=== PATIENT | female | born 1970 | race Caucasian/White ===

== ENCOUNTER 2019-09-10 06:27 | Day surgery (SDC) | payer BC, SELFPAY ==
[2019-09-05 08:30] VITALS: BMI 22.8
--- NOTE | 2019-09-05 08:44 | HP_ITS ---
Intake Vital Signs 09/05/19 Height 5 ft 8 in 09/05/19 Weight: 150 lb 4 oz 09/05/19 BMI 22.8 09/05/19 BP 138/88 H 09/05/19 Blood Pressure Location Rt brachial 09/05/19 Position Sitting 09/05/19 Respiration 202 H 09/05/19 Pulse 78 09/05/19 Pulse Oximetry (%) 100 Intake Visit Reasons: C-Scope Consult Positive Cologuard Chief Complaint: positive cologuard [employer] Required: No Is patient in pain?: No Allergies No Known Allergies Allergy (Verified 09/05/19 08:30) Medications montelukast 10 mg tablet mg PO 09/05/19 [History Confirmed 09/05/19] Is last menstrual period known: No Post menopausal: Yes Patient : No PFSH Medical History (Updated 09/05/19 @ 08:29 by Ruby Carrasco) Mitral valve prolapse (Acute) Osteoarthritis (Acute) Positive colorectal cancer screening using Cologuard test (Acute) Seasonal allergies (Acute) Sleep apnea (Acute) Surgical History (Updated 09/05/19 @ 08:29 by Ruby Carrasco) History of oral surgery (Acute) Status post breast lumpectomy (Acute ~2009) Family History (Updated 09/05/19 @ 08:29 by Ruby Carrasco) Father Diabetes Heart disease Hypertension Hyperlipidemia Cancer skin Social History (Updated 09/05/19 @ 08:44 by Norma Holden MD) Smoking Status: Never smoker HPI HPI HPI: GEORGINA PAUL, is a 49 F who presents to the office today for HPI HPI Surgical H&P: Yes HPI: GEORGINA PAUL, is a 49 F who presents to the office today for colonoscopy due to positive Cologuard test. Patient has never had a previous colonoscopy denies any family history of colon cancer. Patient states she has bowel movements daily denies any blood. Patient does states she occasionally has some left lower quadrant burning which only lasts a few seconds at a time otherwise denies any chronic abdominal pain nausea, vomiting, reflux. ROS General General: No weight change, fatigue, colon cancer, breast cancer or weakness HEENT HEENT: No difficulty swallowing, eye injury, eye surgery, swollen glands or hoarseness Endo Endocrine: No thyroid disease, diabetes mellitus, thyroid cancer, Hair loss, heat intolerance or cold intolerance Musc Musculoskeletal: Yes arthritis; no back problems, rheumatoid arthritis, gout or joint pain Cardio Cardiovascular: No murmur, pacemaker, heart disease, atrial fibrillation, high blood pressure, heart attack, heart stent, palpitations, shortness of breat with exertion or chest pain Additional Details: MVP Resp Respiratory: No shortness of breath, Yes sleep apnea, No cough, No COPD, No asthma, No emphysema, No wheezing Gastro Gastrointestinal: No abdominal pain, No nausea or vomiting, No diarrhea, No constipation, No blood in stool, No acid reflux, No hemorrhoids, No ulcers, No gallbladder problem, No black,tarry stools Additional Details: + cologard Sergio Hematologic: No blood thinners, No blood disorders, No bleeding, No anemia, No blood clots Neuro Neurologic: No weakness Exam Const General: cooperative, comfortable, no acute distress Resp Effort & Inspection: normal respiratory effort Cardio Rate: regular rate Heart Sounds: no murmurs GI Inspection: non-distended Palpation: soft, no guarding, nontender Assessment & Plan Problems 1. Positive colorectal cancer screening using Cologuard test R19.5 Plan I have discussed the above with the patient. I have offered the patient colonoscopy for evaluation. I have explained the risks/benefits of the procedure and described the procedure. I have discussed the risks with the patient, including but not limited to: infection, bleeding, perforation of the GI tract requiring emergency surgery, inability to complete the procedure, injury to any internal organs, complications of anesthesia, etc. - the patient understands and agrees to proceed. I have answered all the patient's questions to the patient's satisfaction and the patient has no further questions. The patient has been given instructions for the colon cleansing preparation. One day of clears, MiraLAX Dulcolax split prep Norma oHlden M.D. Pager: [phone] [facility] [address] [place] [address], [facility], [address] [place] [address] Office: [phone] Orders Orders: Colonoscopy Today Plan Detail Follow Up We will schedule colonoscopy Coding Level of Care Code Off vis,new,level 3 Diagnoses Positive colorectal cancer screening using Cologuard test R19.5 09/05/19 0844 <Electronically signed by Norma Vázquez am, MD> Date _ Norma Holden MD I have re-examined the patient. There are no clinical changes since date of exam. Norma Holden M.D. Pager: [phone] [facility] [address] [place] [id number] Office: [phone]
[2019-09-10] VITALS (7 sets, daily range): BP systolic 79–124; BP diastolic 61–79; PULSE 73–90; RESP 14–18; TEMP 36.2–37.5; O2SAT 96–100; BMI 23.9
--- NOTE | 2019-09-10 | COLBX_PTH ---
PATIENT: GEORGINA PAUL LOC: EN U#:[id number] AGE/SX: 49/F ROOM: RE09/10/[address]: Dr. Norma Holden MD : 1970 BED: DIS: 09/10/2019 SPEC #: [id number] RECD: 09/10/19 13:23 STATUS: ELLIS REAlicia #: [id number] KING: 09/10/19 00:[address]: Norma Holden DEPT: SURGICAL PATHOLOGY RECD BY: Karl Medrano ENTERED: 09/10/19 13:24 SP TYPE: COLON BX OTHR DR: Dr. Shirley Dewey MD Tissues: A - Ascending colon B - Rectum, NOS Procedures: Surgery Specimen Level IV HEADER OPERATION: Colonoscopy (MAC) PRE-OP DIAGNOSIS: Positive Cologuard TISSUE SUBMITTED: A - Ascending colon polyp biopsy, B - Rectal biopsy MICROSCOPIC DIAGNOSIS A. Ascending colon polyp, biopsy: Fragments of hyperplastic polyp. B. Rectum, biopsy: No pathologic change. AM:richard 09/11/19 MICROSCOPIC DESCRIPTION Slides are reviewed. GROSS DESCRIPTION A - Received in fixative is one container labeled with the patient's name and designated ascending colon polyp. The specimen consists of multiple irregular fragments of light smiley soft tissue that in aggregate measure 0.5 x 0.5 x 0.1 cm. The specimen is totally submitted in one cassette. B - Received in fixative is one container labeled with the patient's name and designated rectal biopsy. The specimen consists of one irregular fragment of light smiley soft tissue that measures 0.3 x 0.3 x 0.1 cm. The specimen is totally submitted in one cassette. / SJ:richard 09/10/19 TC:5 CPT: 74644 x2
[2019-09-10] MEDS: Lactated Ringers 1,000 ML 100 ML IV (07:11)
[2019-09-10 07:41] LABS: Internal QC Validated? YES +Cl - CLEAR BKGD; Pregnancy, Serum, hCG Quali. NEGATIVE Negative
--- NOTE | 2019-09-10 14:18 | OP.COLON_ITS ---
Patient Name: Donna Phipps Procedure Date: 09/10/2019 7:04 AM Date of : 1970 Age: 49 Procedure: Colonoscopy Indications: Positive Cologuard test Providers: Norma Holden MD Referring MD: Shirley Dewey Medicines: Monitored Anesthesia Care Patient Profile: This is a 49 year old female. Last Colonoscopy: none. The patient's first colonoscopy is today. Complications: No immediate complications. Procedure: Pre-Anesthesia Assessment: - Prior to the procedure, a History and Physical was performed, and patient medications and allergies were reviewed. The patient's tolerance of previous anesthesia was also reviewed. The risks and benefits of the procedure and the sedation options and risks were discussed with the patient. All questions were answered, and informed consent was obtained. Prior Anticoagulants: The patient has taken no previous anticoagulant or antiplatelet agents. ASA Grade Assessment: II - A patient with mild systemic disease. After reviewing the risks and benefits, the patient was deemed in satisfactory condition to undergo the procedure. After I obtained informed consent, the scope was passed under direct vision. Throughout the procedure, the patient's blood pressure, pulse, and oxygen saturations were monitored continuously. The Colonoscope was introduced through the anus and advanced to the cecum, identified by the appendiceal orifice, ileocecal valve and palpation. The colonoscopy was technically difficult and complex due to a tortuous colon. Successful completion of the procedure was aided by applying abdominal pressure. The patient tolerated the procedure well. The quality of the bowel preparation was good. Scope In: 7:45:20 AM Scope Withdrawal Time 0 hours 16 minutes 27 seconds Scope Out: 8:14:38 AM Total Procedure Duration Time 0 hours 29 minutes 18 seconds Findings: Hemorrhoids were found on perianal exam. A less than 5 mm polyp was found in the descending colon. The polyp was sessile. The polyp was removed with a cold biopsy forceps. Resection and retrieval were complete. Biopsies were taken with a cold forceps for histology. Internal hemorrhoids were found during digital exam. The hemorrhoids were Grade I (internal hemorrhoids that do not prolapse). A localized area of mildly erythematous mucosa was found in the rectum. This was biopsied with a cold forceps for histology. The exam was otherwise without abnormality. Impression: - Hemorrhoids found on perianal exam. - One less than 5 mm polyp in the descending colon, removed with a cold biopsy forceps. Resected and retrieved. Biopsied. - Internal hemorrhoids. - Erythematous mucosa in the rectum. Biopsied. - The examination was otherwise normal. Recommendation: - Discharge patient to home. - Resume previous diet. - Continue present medications. - Await pathology results. - Repeat colonoscopy in 3 - 5 years for surveillance based on pathology results. Procedure Code(s): --- Professional --- 90686, Colonoscopy, flexible; with biopsy, single or multiple Diagnosis Code(s): --- Professional --- K64.0, First degree hemorrhoids D12.4, Benign neoplasm of descending colon K62.89, Other specified diseases of anus and rectum R19.5, Other fecal abnormalities CPT copyright 2017 [employer]. All rights reserved. The codes documented in this report are preliminary and upon wharfinger chief review may be revised to meet current compliance requirements. MD Norma Gorman MD 09/10/2019 8:21:32 AM This report has been signed electronically. Number of Addenda: 0 Note Initiated On: 09/10/2019 7:04 AM
--- NOTE | 2019-09-10 14:18 | OP.CCLET_ITS ---
09/10/2019 Shirley Dewey [facility] [address] [place] [address] Re : Colonoscopy procedure for Donna Phipps Dear Dr. Dewey This procedure was performed on Tuesday, September 10, 2019. My impressions and recommendations are as follows: Impressions : - Hemorrhoids found on perianal exam. - One less than 5 mm polyp in the descending colon, removed with a cold biopsy forceps. Resected and retrieved. Biopsied. - Internal hemorrhoids. - Erythematous mucosa in the rectum. Biopsied. - The examination was otherwise normal. Recommendations : - Discharge patient to home. - Resume previous diet. - Continue present medications. - Await pathology results. - Repeat colonoscopy in 3 - 5 years for surveillance based on pathology results. My findings are described in the full procedure note, which is enclosed. If I can be of further assistance, please feel free to contact me at Doctor phone number(s): , Work: . Sincerely, MD Norma Gorman MD 09/10/2019 8:21:32 AM This report has been signed electronically.
== END 2019-09-10 09:09 | disposition home or self-care (01) ==
LOC: EN 06:29 → AC 06:31
PROVIDERS: Anesthesiology; PCP Family Medicine; Referring Provider Family Medicine; Visit Provider Surgery
PROC: 0DJD8ZZ Inspection of Lower Intestinal Tract, Via Natural or Artificial Opening Endoscopic (ICD-10-PCS; CPT 45378; principal; 2019-09-10 07:25)
DX: K63.5 Polyp of colon (principal); K64.0 First degree hemorrhoids; M19.90 Unspecified osteoarthritis, unspecified site
CPT/HCPCS: 45380; 36415; 84703; 88305; J7120; J2405

== ENCOUNTER → 2020-03-06 | Outpatient (CLI) | payer BC, SELFPAY ==
[2020-03-06 11:45] VITALS: BMI 23.9
[2020-03-13 15:35] LABS: HPV APTIMA, High Risk Negative (Negative)
== END | disposition home or self-care (01) ==
LOC: LABSPEC 17:18
PROVIDERS: PCP Family Medicine; Referring Provider Nurse Practitioner Women's Health; Visit Provider Nurse Practitioner Women's Health
DX: Z12.4 Encounter for screening for malignant neoplasm of cervix (principal)
CPT/HCPCS: 87624; 88175; G0145

== ENCOUNTER → 2020-03-20 | Outpatient (CLI) | payer BC, SELFPAY ==
[2020-03-06 11:45] VITALS: BMI 23.9
--- NOTE | 2020-03-20 09:28 | BI_ITS ---
MAMMOGRAPHY - BILATERAL DIAGNOSTIC REASON FOR EXAM: Female, 50 years old. Right breast lump. PERTINENT HISTORY: Non-contributory. Prior right excisional breast biopsy TECHNIQUE: Digital bilateral breast vidhi (3D mammographic acquisition) in the CC and MLO projections. 2-D mediolateral oblique (MLO) and craniocaudad (CC) views of both breasts were obtained. CAD: Full Field Digital Mammography with Computer Added Detection was performed. COMPARISON: Comparison is made with prior outside examination dated 03/25/2017. FINDINGS: Breast Composition: The breasts are extremely dense, which lowers the sensitivity of mammography. Surgical clips are seen in the upper central portion of the right breast. A dominant well-defined nodule measuring 3.4 cm x 2.2 cm is seen in the upper lateral aspect of the right breast. There is also evidence of a dominant 1.9 cm cyst in the retrocrural region of the right breast. Correlation with ultrasound is recommended. No other significant abnormalities are identified. BI/DIAG MAMM W/CAD, BILAT IMPRESSION: Right breast nodules as described. Correlation with ultrasound is recommended. ASSESSMENT CATEGORY: BIRADS Category 0: Incomplete. Need additional imaging evaluation. A letter regarding these results will be sent to the patient by the facility within 30 days. Approximately 10% of breast cancers are not detected by mammography. A normal mammogram should not delay biopsy of a clinically suspicious abnormality. Electronically Signed: Juan Stephen, at 10:44 EDT , Service support ,
--- NOTE | 2020-03-20 09:28 | US_ITS ---
STUDY: ULTRASOUND BREAST - RIGHT REASON FOR EXAM: Female, 50 years old. Abnormal screening mammogram. TECHNIQUE: Axial and longitudinal images of the RIGHT breast were performed with a high resolution ultrasound transducer. # OF IMAGES: 19 COMPARISON: Comparison is made with prior mammogram dated 03/20/2020. FINDINGS: RIGHT Breast: There is a 3.5 cm x 2.6 cm x 1.9 cm cyst at the 9 o''clock position of the breast at 2 cm from the nipple. US/Breast Limited Unilateral IMPRESSION: The mammographic abnormality corresponds to a 3.5 cm x 2.6 x 2 x 1.9 cm cyst at 9 o''clock position of the breast at 2 cm from the nipple. ASSESSMENT CATEGORY: BIRADS Category 2: Benign. A letter regarding these results will be sent to the patient by the facility within 30 days. Electronically Signed: Juan Stephen, at 12:48 EDT , Service support ,
== END | disposition home or self-care (01) ==
PROVIDERS: PCP Family Medicine; Referring Provider Nurse Practitioner Women's Health; Visit Provider Nurse Practitioner Women's Health
DX: N63.10 Unspecified lump in the right breast, unspecified quadrant (principal)
CPT/HCPCS: 76642; 77062; 77066; G0279

== ENCOUNTER → 2021-03-09 | Outpatient (CLI) | payer BC, SELFPAY ==
[2021-03-09 11:06] VITALS: BMI 23.9
[2021-03-13 22:30] LABS: HPV APTIMA, High Risk Negative (Negative)
== END | disposition home or self-care (01) ==
PROVIDERS: PCP Family Medicine; Referring Provider Nurse Practitioner Women's Health; Visit Provider Nurse Practitioner Women's Health
DX: R87.612 Low grade squamous intraepithelial lesion on cytologic smear of cervix (LGSIL) (principal)
CPT/HCPCS: 87624; 88175; G0145

== ENCOUNTER → 2021-06-25 10:09 | Outpatient (CLI) | payer BC, SELFPAY | PROVIDERS: PCP Family Medicine; Visit Provider Physician Assistant | DX: Z11.52 Encounter for screening for COVID-19 (principal) | CPT/HCPCS: 87635; U0005; U0003 ==

== ENCOUNTER → 2021-07-15 | Outpatient (CLI) | payer BC, SELFPAY | END | disposition home or self-care (01) | LOC: LABSPEC 08:24 | PROVIDERS: PCP Family Medicine; Visit Provider Physician Assistant | DX: Z11.52 Encounter for screening for COVID-19 (principal) | CPT/HCPCS: 87635; U0005; U0003 ==

== ENCOUNTER → 2022-03-10 | Outpatient (CLI) | payer BC, SELFPAY ==
--- NOTE | 2022-03-10 08:04 | BI_ITS ---
MAMMOGRAPHY - BILATERAL SCREENING REASON FOR EXAM: Female, 52 years old. Routine annual screening examination. PERTINENT HISTORY: Non-contributory. Remote right excisional breast biopsy. TECHNIQUE: Digital bilateral breast wade (3D mammographic acquisition) in the CC and MLO projections. 2-D mediolateral oblique (MLO) and craniocaudad (CC) views of both breasts were obtained. CAD: Full Field Digital Mammography with Computer Added Detection was performed. COMPARISON: Comparison is made with prior examination dated 03/20/2020. FINDINGS: Breast Composition: The breasts are extremely dense, which lowers the sensitivity of mammography. There are no dominant masses or suspicious calcifications. Since prior study, the previously seen dominant nodule in the upper lateral aspect of the right breast is not seen at this time. Surgical clips are seen in the retroareolar region of the right breast. This is unchanged. No other significant abnormalities are identified. BI/SCRN MAMM (CAD)W/WADE BILAT IMPRESSION: Stable bilateral screening mammogram. Yearly follow-up mammogram recommended. (A) ASSESSMENT CATEGORY: BIRADS Category 2: Benign. A letter regarding these results will be sent to the patient by the facility within 30 days. Approximately 10% of breast cancers are not detected by mammography. A normal mammogram should not delay biopsy of a clinically suspicious abnormality. [id number] Electronically Signed: Juan Stephen MD at 9:45 EDT ,
[2022-03-12 22:29] LABS: HPV APTIMA, High Risk Negative (Negative)
== END | disposition home or self-care (01) ==
LOC: OPBI 08:03
PROVIDERS: PCP Family Medicine; Referring Provider Nurse Practitioner Women's Health; Visit Provider Nurse Practitioner Women's Health
DX: Z12.31 Encounter for screening mammogram for malignant neoplasm of breast (principal); Z12.4 Encounter for screening for malignant neoplasm of cervix
CPT/HCPCS: 77063; 77067; 87624; 88175; G0145

== ENCOUNTER → 2023-03-14 | Outpatient (CLI) | payer BC, SELFPAY ==
--- NOTE | 2023-03-14 13:05 | BI_ITS ---
MAMMOGRAPHY - BILATERAL SCREENING REASON FOR EXAM: Female, 53 years old. Routine annual screening examination. PERTINENT HISTORY: Non-contributory. Remote right excisional breast biopsy. TECHNIQUE: Digital bilateral breast wade (3D mammographic acquisition) in the CC and MLO projections. 2-D mediolateral oblique (MLO) and craniocaudad (CC) views of both breasts were obtained. CAD: Full Field Digital Mammography with Computer Added Detection was performed. COMPARISON: Comparison is made with prior study dated March 10, 2022 and March 20, 2020. FINDINGS: Breast Composition: The breasts are extremely dense, which lowers the sensitivity of mammography. There are no dominant masses or suspicious calcifications. Once again, surgical clips are seen in the superior retroareolar region of the right breast. No other significant abnormalities are identified. There has been no significant change since the prior study. BI/SCRN MAMM (CAD)W/WADE BILAT IMPRESSION: Stable bilateral screening mammogram. Yearly follow-up mammogram recommended. (A) ASSESSMENT CATEGORY: BIRADS Category 2: Benign. A letter regarding these results will be sent to the patient by the facility within 30 days. Approximately 10% of breast cancers are not detected by mammography. A normal mammogram should not delay biopsy of a clinically suspicious abnormality. [id number] Electronically Signed: Juan Stephen MD at 14:01 EDT ,
[2023-03-17 08:33] LABS: HPV APTIMA, High Risk Negative (Negative)
== END | disposition home or self-care (01) ==
PROVIDERS: PCP Family Medicine; Referring Provider Nurse Practitioner Women's Health; Visit Provider Nurse Practitioner Women's Health
DX: Z12.31 Encounter for screening mammogram for malignant neoplasm of breast (principal); Z12.4 Encounter for screening for malignant neoplasm of cervix
CPT/HCPCS: 77063; 77067; 87624; 88175; G0145

== ENCOUNTER → 2024-03-26 | Outpatient (CLI) | payer BC, SELFPAY ==
--- NOTE | 2024-03-26 13:55 | BI_ITS ---
MAMMOGRAPHY - BILATERAL SCREENING REASON FOR EXAM: Female, 54 years old. Routine annual screening examination. PERTINENT HISTORY: Non-contributory. TECHNIQUE: Digital bilateral breast wade (3D mammographic acquisition) in the CC and MLO projections. 2-D mediolateral oblique (MLO) and craniocaudad (CC) views of both breasts were obtained. CAD: Full Field Digital Mammography with Computer Added Detection was performed. COMPARISON: Comparison is made with prior study March 14, 2023 and March 10, 2022. FINDINGS: Breast Composition: The breasts are extremely dense, which lowers the sensitivity of mammography. There are no dominant masses or suspicious calcifications. Once again, surgical clips are seen in the superior retroareolar region of the right breast in keeping with prior excisional breast biopsy. No other significant abnormalities are identified. There has been no significant change since the prior study. BI/SCRN MAMM (CAD)W/WADE BILAT IMPRESSION: Stable bilateral screening mammogram. Yearly follow-up mammogram recommended. (A) ASSESSMENT CATEGORY: BIRADS Category 2: Benign. A letter regarding these results will be sent to the patient by the facility within 30 days. Approximately 10% of breast cancers are not detected by mammography. A normal mammogram should not delay biopsy of a clinically suspicious abnormality. [id number] Electronically Signed: Juan Stephen MD at 14:32 EDT ,
== END | disposition home or self-care (01) ==
LOC: OPBI 13:54
PROVIDERS: PCP Family Medicine; Referring Provider Nurse Practitioner Family; Visit Provider Nurse Practitioner Family
DX: Z12.31 Encounter for screening mammogram for malignant neoplasm of breast (principal)
CPT/HCPCS: 77063; 77067

== ENCOUNTER → 2025-03-20 | Outpatient (CLI) | payer OTHER, SELFPAY ==
--- NOTE | 2025-03-20 09:46 | RAD_ITS ---
PROCEDURE: WRIST MIN 3 VIEWS 03/20/2025 REASON FOR EXAM: PAIN TECHNIQUE: WRIST MIN 3 VIEWS COMPARISON: No FINDINGS: Very mild lateral wrist osteoarthritis. No acute bone or soft tissue pathology. RAD/Wrist min 3 Views IMPRESSION: No acute findings. Reading Location: [place] [address]
== END | disposition home or self-care (01) ==
LOC: MTRAD 09:39
PROVIDERS: PCP Family Medicine; Referring Provider Nurse Practitioner Family; Visit Provider Nurse Practitioner Family
DX: M25.532 Pain in left wrist (principal)
CPT/HCPCS: 73110

== ENCOUNTER 2025-07-23 09:11 | Day surgery (SDC) | payer OTHER, SELFPAY ==
[2025-07-23] VITALS (8 sets, daily range): BP systolic 89–151; BP diastolic 62–82; PULSE 60–77; RESP 16; TEMP 36.1–36.9; O2SAT 97–100; BMI 24.1
[2025-07-23] MEDS: Lactated Ringers 1,000 ML 15 ML IV (09:37)
--- NOTE | 2025-07-23 10:13 | PCM.PRE.AN2 ---
ASA Classification* ASA Classification ASA Classification: 2 Assessment & Plan Anesthesia* Anesthesia Assessment Anesthesia Assessment: Discussed sedation and/or anesthesia options, risks, benefits, and alternatives with patient/parents/legal guardian/POA. Questions invited. The patient/parents/legal guardian/POA seems to understand and agrees to proceed with anesthesia plan. Reviewed the physical assessment, medical history, allergy history and patient home medications list prior to surgery/procedure/anesthetic and documented any changes. Performed airway and anesthesia risk assessments. Anesthesia Type Anesthesia Type: MAC History Source History Obtained from:: Patient and Chart Anesthesia Focused Assessment* Temperature: 98.4 F Pulse Rate: 77 Blood Pressure: 151/82 Respiratory Rate: 16 Pulse Ox: 99 Oxygen Delivery Method: Room Air Airway Assessment Mouth opens: >3 cm Mallampati Score: I Teeth Condition: Caps/Crowns (Patient has a crown. It is tight.) Neck Range of motion (ROM): Full ROM Labs Anesthesia Preop lab: CBC CHEMISTRY COAG Pre-Assessment Diagnosis/Proposed Procedure Planned Operative Procedure(s): COLONOSCOPY Anesthesia History Anesthesia History - procurement engineer: Anesthesia History - procurement engineer Hx Hospitalization No 07/16/25 15:50 Any Problems With Anesthesia No 07/16/25 15:50 Cholinesterase deficiency No 07/16/25 15:50 You/Your Family Experience No 07/16/25 15:50 fever (hyperthermia) with Relationship Recent Exposure to Contagious No 09/10/19 06:52 Disease Does patient have nerve No 07/16/25 15:50 stimulator Patient instructed to have device shut off --Does patient have Pacemaker No 07/23/25 09:29 or ICD? When Was Last Pacemaker Check QUESTION #4 FULL TEXT: You/Your Family Experience fever (hyperthermia) with Anesthesia Last Oral Intake Last Oral intake: Last Oral Intake NPO since 06:15 07/23/25 09:29 Meds taken in AM with sips of No 07/23/25 09:29 water? Meds patient instructed to take am of surgery Any additional information?: Yes NPO since: 07:15 (Patient had black coffee at 7:15 AM.) PONV PONV - procurement engineer: PONV - procurement engineer Female Yes 07/16/25 15:50 HX of Motion Sickness No 07/16/25 15:50 HX of N/V After Surgery No 07/16/25 15:50 Non-Smoker Yes 07/16/25 15:50 Duration of Surgery greater No 07/16/25 15:50 than 60 minutes Number of Risk Factors 2 07/16/25 15:50 PONV Score Moderate Risk 07/16/25 15:50 Height & Weight Height & Weight: Anesthesia: Height & Weight Height 5 ft 8 in 07/23/25 09:29 Weight: 72 kg 07/23/25 09:29 Body Mass Index (BMI) 24.1 07/23/25 09:29 Respiratory Assessment Respiratory Assessment - procurement engineer: Respiratory Tract Infection Hx - procurement engineer Hx Respiratory Tract Infection No 07/16/25 15:50 STOP Sleep Apnea STOP Sleep Apnea - procurement engineer: STOP Sleep Apnea - procurement engineer Hx Hypertension No 07/16/25 15:50 Hx Sleep Apnea No 07/16/25 15:50 CPAP BIPAP Do you snore loudly (louder No 07/16/25 15:50 than talking or can be heard Do you often feel tired/ No 07/16/25 15:50 fatigued/ sleepy during daytime? Has anyone observed you stop No 07/16/25 15:50 breathing during sleep? STOP Results Negative 07/16/25 15:50 QUESTION #5 FULL TEXT : Do you snore loudly (louder than talking or can be heard through closed doors)? Tobacco Use History Tobacco Use History - procurement engineer: Tobacco Use History - procurement engineer Tobacco Use Smoking Status Never smoker 07/16/25 15:50 Hx Tobacco Use No 07/16/25 15:50 Years Smoking Packs Smoked per Day Smoking Cessation Date was within the last 15 years Hx Smoking Cessation Date Hx Smoking Cessation Counseling Hematologic Medial History Hematologic Hx - procurement engineer: Hematologic Medical Hx - documentation consultant Hx of Blood Transfusion No 07/16/25 15:50 Hx of Transfusion in last 3 No 07/16/25 15:50 Months Date of Last Transfusion (if within last 3 months) Ever experience any problems No 07/16/25 15:50 with transfusion(s)? Specify any problems Hx of Preganancy in last 3 No 07/16/25 15:50 Months Nurse Filling Out Transfusion [email or web address] 07/16/25 15:50 & Questions: Date: 07/16/25 07/16/25 15:50 Time: 15:53 07/16/25 15:50 Patient unable to answer at this time (ie. confused, unrespo /Reproduction History /Reproductive History - procurement engineer: /Reproductive Hx- procurement engineer Hx Now Gestational Age (in weeks): EDC: Hx Hx Para Hx Section SAB No 04/25/25 13:40 Does the father of the baby or his family experience fever w Father of the baby Malignant Hypertension history comment Active Medications Active Medications: Current Medications Generic Name Dose Route Start Last Admin Trade Name Freq PRN Reason Stop Dose Admin Lactated Ringer's 1,000 mls @ 15 mls/hr 07/23/25 09:30 07/23/25 09:37 IV 15 mls/hr .Q48H JONES Administration PFSH Medical History Wears glasses Non-smoker Cardiology follow-up encounter Seasonal allergies Sleep apnea Osteoarthritis Mitral valve prolapse Positive colorectal cancer screening using Cologuard test Home Medications Medication Instructions Recorded Last Taken Type montelukast 10 mg tablet 10 mg PO DAILY 09/05/19 09/08/19 History estradiol 0.01% (0.1 mg/gram) See Rx Instructions vaginal 04/25/25 Unknown Rx vaginal cream .COMPLEX #42.5 grams Allergy/AdvReac Type Severity Reaction Status Date / Time No Known Allergies Allergy Verified 07/23/25 09:28 Family History Father Diabetes Heart disease Hypertension Hyperlipidemia Cancer skin Surgical History History of oral surgery Status post breast lumpectomy (~2009) Social History household members: spouse number of children: 3 current occupational status: employed current occupation: [employer] history of recent travel: No sexually active: Yes Smoking Status: Never smoker alcohol intake: current alcohol intake frequency: a few times a month Alcohol type: wine substance use type: does not use caffeine: Yes what type of physical activity do you participate in: walking do you feel safe at home: Yes additional social history: - Chris Review of Systems (Anesthesia) ROS Narrative System reviewed and no additional complaints, except as documented.
--- NOTE | 2025-07-23 10:15 | COLBX_PTH ---
PATIENT: GEORGINA PAUL LOC: EN U#:[id number] AGE/SX: 55/F ROOM: RE07/23/[address]: Dr. Jonn Lorenzana MD : 1970 BED: DIS: 07/23/2025 SPEC #: [id number] RECD: 07/23/25 12:19 STATUS: [facility]LLIS [facility] #: [id number] KING: 07/23/25 10:[address]: Jonn Lorenzana DEPT: SURGICAL PATHOLOGY RECD BY: Ayaka Boone ENTERED: 07/23/25 14:18 SP TYPE: COLON BX OT DR: Dr. Shirley Dewey MD Tissues: Sigmoid colon biopsy Procedures: Surgery Specimen Level IV HEADER OPERATION: Colonoscopy with polypectomy PRE-OP DIAGNOSIS: Colon cancer screening TISSUE SUBMITTED: A- Sigmoid polyp MICROSCOPIC DIAGNOSIS A. Colon, sigmoid, polyp, polypectomy: - Polypoid colonic mucosa severely distorted with cautery artifact - see note. Note: The cautery artifact limits the histologic assessment. MICROSCOPIC DESCRIPTION Slides are reviewed. GROSS DESCRIPTION A. Received in fixative is one container labeled with the patient's name and designated "Sigmoid polyp." The specimen consists of one irregular fragment of smiley tissue that measures 0.3 cm. The specimen is totally submitted in one cassette. UT 07/23/2025 CPT:29951
--- NOTE | 2025-07-23 10:43 | HP.PCM_ITS ---
HPI - General General Date of Admission: 07/23/25 Date of Service: 07/23/25 Chief Complaint: Surveillance colonoscopy HPI Narrative GEORGINA PAUL, is a 55 F who presents for colonoscopy. Patient's last colonoscopy was about 5 years ago. She had polyps at that time. She has a family history of colon polyps. No family history of colon cancer. She denies any GI symptoms or problems to speak of [facility] Medical History (Updated 07/23/25 @ 10:[address] Jonn Lorenzana MD) Colon cancer screening Wears glasses Non-smoker Cardiology follow-up encounter Seasonal allergies Sleep apnea Osteoarthritis Mitral valve prolapse Positive colorectal cancer screening using Cologuard test Home Medications Medication Instructions Recorded Last Taken Type montelukast 10 mg tablet 10 mg PO DAILY 09/05/1908/22 History estradiol 0.01% (0.1 mg/gram) See Rx Instructions vagi nal 04/25/25 Unknown Rx vaginal cream .COMPLEX #42.5 grams Allergy/AdvReac Type Severity Reaction Status Date / Time No Known Allergies Allergy Verified 07/23/25 09:28 Family History Father Diabetes Heart disease Hypertension Hyperlipidemia Cancer skin Surgical History History of oral surgery Status post breast lumpectomy (~2009) Social History household members: spouse number of children: 3 current occupational status: employed current occupation: [employer] history of recent travel: No sexually active: Yes Smoking Status: Never smoker alcohol intake: current alcohol intake frequency: a few times a month Alcohol type: wine substance use type: does not use caffeine: Yes what type of physical activity do you participate in: walking do you feel safe at home: Yes additional social history: - Chris Vital Signs Vital Signs Vital Signs: 07/23/25 09:29 07/23/25 09:29 07/23/25 09:29 Temperature 98.4 F Temperature Source Temporal Pulse Rate 77 Respiratory Rate 16 Respiratory Pattern Normal Blood Pressure 151/82 H Blood Pressure Mean 105 Blood Pressure Source Monitor Blood Pressure Position Sitting Blood Pressure Location Right Arm Baseline BP 151/82 Pulse Ox 99 Oxygen Delivery Method Room Air 07/23/25 10:17 Temperature 98.4 F Temperature Source Pulse Rate 77 Respiratory Rate 16 Respiratory Pattern Blood Pressure 151/82 H Blood Pressure Mean Blood Pressure Source Blood Pressure Position Blood Pressure Location Baseline BP Pulse Ox 99 Oxygen Delivery Method Room Air Weight Weight: 158 lb 11.725 oz Body Mass Index (BMI) 24.1 Physical Exam Const alert, oriented x3 and no apparent distress Assessment & Plan Assessment/Plan (1) Colon cancer screening: PLAN: Plan The patient is a 55-year-old female with a history of colon polyps. She presents for colonoscopy. We discussed the details of the planned procedure including risk benefits and alternatives. She wishes to proceed. This will begin momentarily
--- NOTE | 2025-07-23 11:40 | OP.COLON_ITS ---
Patient Name: Donna Phipps Procedure Date: 07/23/2025 10:46 AM Date of : 1970 Age: 55 Procedure: Colonoscopy Indications: High risk colon cancer surveillance: Personal history of colonic polyps Providers: Jonn Lorenzana MD Referring MD: Shirley Dewey Medicines: Monitored Anesthesia Care Patient Profile: Refer to note in patient chart for documentation of history and physical. Last Colonoscopy: 5 years ago. Complications: No immediate complications. Estimated blood loss: Minimal. Procedure: Pre-Anesthesia Assessment: - Prior to the procedure, a History and Physical was performed, and patient medications and allergies were reviewed. The patient's tolerance of previous anesthesia was also reviewed. The risks and benefits of the procedure and the sedation options and risks were discussed with the patient. All questions were answered, and informed consent was obtained. Prior Anticoagulants: The patient has taken no anticoagulant or antiplatelet agents. ASA Grade Assessment: II - A patient with mild systemic disease. After reviewing the risks and benefits, the patient was deemed in satisfactory condition to undergo the procedure. After I obtained informed consent, the scope was passed under direct vision. Throughout the procedure, the patient's blood pressure, pulse, and oxygen saturations were monitored continuously. The adult colonoscope was introduced through the anus and advanced to the cecum, identified by appendiceal orifice and ileocecal valve. The ileocecal valve, appendiceal orifice, and rectum were photographed. The entire colon was well visualized. The colonoscopy was somewhat difficult due to a tortuous colon. Successful completion of the procedure was aided by using manual pressure. The patient tolerated the procedure well. The quality of the bowel preparation was fair. Moderate Sedation: See the other procedure note for documentation of moderate sedation with intraservice time. Scope In: 11:02:43 AM Scope Withdrawal Time 0 hours 11 minutes 10 seconds Scope Out: 11:33:10 AM Total Procedure Duration Time 0 hours 30 minutes 27 seconds Findings: The perianal and digital rectal examinations were normal. The colon (entire examined portion) was moderately tortuous. A 4 mm polyp was found in the sigmoid colon. The polyp was semi-sessile. The polyp was removed with a hot snare. Resection and retrieval were complete. Verification of patient identification for the specimen was done by the nurse using the patient's name, date and medical record number. Estimated blood loss was minimal. The exam was otherwise without abnormality. Impression: - Preparation of the colon was fair. - Tortuous colon. - One 4 mm polyp in the sigmoid colon, removed with a hot snare. Resected and retrieved. - The examination was otherwise normal. Recommendation: - Discharge patient to home (ambulatory). - High fiber diet. - Await pathology results. - Repeat colonoscopy in 5 years for surveillance. - Return to my office PRN. - Continue present medications. Procedure Code(s): --- Professional --- 04031, Colonoscopy, flexible; with removal of tumor(s), polyp(s), or other lesion(s) by snare technique Diagnosis Code(s): --- Professional --- Z86.010, Personal history of colonic polyps Q43.8, Other specified congenital malformations of intestine D12.5, Benign neoplasm of sigmoid colon CPT copyright 2021 [employer]. All rights reserved. The codes documented in this report are preliminary and upon bladder trimmer review may be revised to meet current compliance requirements. Jonn Lorenzana MD 07/23/2025 11:39:58 AM This report has been signed electronically. Number of Addenda: 0 Note Initiated On: 07/23/2025 10:46 AM
--- NOTE | 2025-07-23 11:40 | OP.PROVAT_ITS ---
07/23/2025 Shirley Dewey [place] [id number] [address] Re : Colonoscopy procedure for Donna Phipps Dear Dr. Dewey This procedure was performed on Wednesday, July 23, 2025. My impressions and recommendations are as follows: Impressions : - Preparation of the colon was fair. - Tortuous colon. - One 4 mm polyp in the sigmoid colon, removed with a hot snare. Resected and retrieved. - The examination was otherwise normal. Recommendations : - Discharge patient to home (ambulatory). - High fiber diet. - Await pathology results. - Repeat colonoscopy in 5 years for surveillance. - Return to my office PRN. - Continue present medications. My findings are described in the full procedure note, which is enclosed. If I can be of further assistance, please feel free to contact me at . Sincerely, Jonn Lorenzana MD 07/23/2025 11:39:58 AM This report has been signed electronically.
--- NOTE | 2025-07-23 11:49 | PCM.POST.ANE ---
Anesthesia: Postop Eval I Current Vital Signs Temperature: 97 F Pulse Rate: 67 Blood Pressure: 89/62 Respiratory Rate: 16 Pulse Ox: 98 Oxygen Delivery Method: Room Air Assessment Airway patent: Yes Spontaneous unlabored respirations: Yes Mental status: Awake nausea: No Vomiting: No Anesthesia Complication: No Fluid Hydration Crystalloid volume administer (ml): 600 Total IV fluid infused: 600 Progress Note Anesthesia document: Postop Eval 1 completed: Yes
--- NOTE | 2025-07-23 20:54 | PCM.POSTANE2 ---
Anesthesia Postop Eval I Sum Postop Eval Completion status Anesthesia document: Postop Eval 1 completed: Yes Anesthesia Postop Eval I Summary Anesthesia Postop Eval I Summary: Anesthesia Postop Eval I: Assessment Summary Airway patent Yes 07/23/25 11:50 [email or web address] Spontaneous unlabored Yes 07/23/25 11:50 [email or web address] respirations Mental status Awake 07/23/25 11:50 [email or web address] nausea No 07/23/25 11:50 [email or web address] Vomiting No 07/23/25 11:50 [email or web address] Anesthesia Postop Eval I: Fluid Summary Crystalloid volume administer 600 07/23/25 11:50 [email or web address] (ml) Colloids volume administered ( ml) Blood Product volume administered (ml) Total IV fluid infused 600 07/23/25 11:50 [email or web address] Anesthesia Postop Eval I: Summary Notes Anesthesia Complication No 07/23/25 11:50 [email or web address] Anesthesia Complication Comment: Post-operative progress note Anesthesia: Postop Eval II Evaluation Mental status: Awake and Calm Pain Level: 0 nausea: No Vomiting: No Complications Anesthesia Complication: No
== END 2025-07-23 12:37 | disposition home or self-care (01) ==
LOC: EN 09:12 → AC 09:14
PROVIDERS: PCP Family Medicine; Referring Provider Family Medicine; Visit Provider Surgery
PROC: 0DJD8ZZ Inspection of Lower Intestinal Tract, Via Natural or Artificial Opening Endoscopic (ICD-10-PCS; CPT 45378; principal; 2025-07-23 10:10)
DX: Z12.11 Encounter for screening for malignant neoplasm of colon (principal); Z86.0100 Personal history of colon polyps, unspecified; Z83.719 Family history of colon polyps, unspecified; Q43.8 Other specified congenital malformations of intestine; K63.5 Polyp of colon
CPT/HCPCS: 45385; 88305; J2405